=== PATIENT | female | born 1975 | race American Indian/Alaskan Native ===

== ENCOUNTER 2018-12-09 09:38 | Outpatient (CLI) | payer MEDICAID ==
[2018-12-09 10:22] LABS: Blood Urea Nitrogen 5 mg/dL (7-17)
--- NOTE | 2018-12-09 11:14 | Magnetic Resonance Report ---
MRI BRAIN WITH/WITHOUT CONTRAST: History: Migraine without oral, dizziness, giddiness, fatigue, weakness. Comparison: None at this facility. Technique: Multiple T1 and T2 weighted images were obtained in multiple planes. Axial diffusion and gradient imaging was performed. Post contrast T1 images in two planes were obtained following IV gadolinium. FINDINGS: The brain parenchyma signal intensity and its jacome-white interface are normal on all sequences. No abnormal parenchymal signal. No diffusion restriction, hemorrhage, mass effect or extra-axial fluid collection. Ventricular size is normal and symmetric. The basal cisterns are clear. The brainstem and cerebellar hemispheres are within normal limits. The fourth ventricle is midline. The paranasal sinuses and mastoid air cells are well aerated. Normal flow voids are identified in the appropriate vessels at the [place]. No abnormal enhancement is identified following IV gadolinium. IMPRESSION: Unremarkable MRI brain with and without contrast.
== END 2018-12-09 09:39 | disposition home or self-care (01) ==
LOC: MRI 09:38
PROVIDERS: ATTEND Internal Medicine
DX: G43.009 Migraine without aura, not intractable, without status migrainosus (principal); R53.83 Other fatigue; R53.1 Weakness; R42 Dizziness and giddiness
CPT/HCPCS: 36415; 70553; 82565; 84520; A9577